=== PATIENT | male | born 1980 | race Hispanic/Latino ===

== ENCOUNTER 2024-05-24 12:50 | Emergency (ER) | payer OTHER ==
[~2024-05-24] VITALS: Ht 175.3 cm; Wt 83.9 kg
[2024-05-24 13:36] VITALS: PULSE 90; RESP 18; TEMP 98.2; O2SAT 100
[2024-05-24] MEDS ORDERED: CIPRO500 MG PO (15:02)
== END 2024-05-24 15:08 | disposition home or self-care (01) ==
LOC: ER 13:00
DX: S91.332D Puncture wound without foreign body, left foot, subsequent encounter (principal); L08.9 Local infection of the skin and subcutaneous tissue, unspecified; W45.0XXD Nail entering through skin, subsequent encounter
CPT/HCPCS: 99283